=== PATIENT | male | born 1975 | race Hispanic/Latino ===

== ENCOUNTER 2018-01-30 09:26 | Day surgery (SDC) | payer OTHER ==
[2018-01-28 12:45] VITALS: BMI 35.5
[2018-01-30] MEDS ORDERED: Ketorolac Tromethamine 30 MG/ML VIAL ONE (10:14)
[2018-01-30] MEDS ORDERED: CEFAZOLIN/Water 2 GM/20 ML SYRINGE ONE (10:14)
[2018-01-30] MEDS ORDERED: Fentanyl 100 MCG/2 ML VIAL ONE ×2 (12:54→14:01)
[2018-01-30] MEDS ORDERED: Lidocaine 2% 10 ML INJ ONE (12:57)
[2018-01-30] MEDS ORDERED: Bupivacaine HCl 0.5%/Epinephrine 1:200,000/PF 30 ml Vial ONE (12:57)
[2018-01-30] MEDS ORDERED: Lidocaine 1% PF 5 ML VIAL ONE (13:46)
[2018-01-30] MEDS ORDERED: Dexamethasone 20 MG/5 ML VIAL ONE (13:46)
[2018-01-30] MEDS ORDERED: Ondansetron HCl/PF 4 MG/2 ML Vial ONE (13:46)
[2018-01-30] MEDS ORDERED: PROPOFOL 200 MG/20 ML VIAL ONE (13:46)
--- NOTE | 2018-01-30 14:13 | OP ---
PREOPERATIVE DIAGNOSIS: Symptomatic painful umbilical hernia. POSTOPERATIVE DIAGNOSIS: Symptomatic painful umbilical hernia. PROCEDURE: PVP 4.4 cm mesh, preperitoneal reinforcement of fascial closure repair of umbilical herni a. SURGEON: Dr. Raghavendra Rain. ANESTHESIA: General. Local 0.5% Marcaine with epinephrine 30 mL, mixed with 2% Xylocaine 10 mL, tot al volume mixture used. PROCEDURE IN DETAIL: The patient was taken to the operating room where under general anesthesia, abd omen was clipped of hair, prepared with ChloraPrep, draped in routine fashion. Local anesthetic infi ltrated into skin subcutaneous tissue about the operative site. Infraumbilical incision made and an umbilical hernia defect dissected free. Fascial edges identified. Preperitoneal space was identifie d. PVP mesh placed in the preperitoneal space and controlling with the straps and interrupted suture s of 0 PDS used to complete the hernia repair [id number] incorporating mesh approximation of the fascial closure, closing the defect. Subcutaneous tissues approximated with 3-0 Monocryl, skin with subdermal 4-0 Monocryl. Umbilicus approximated to the fascia with 3-0 Monocryl and DermaGlue applie d. The patient tolerated the procedure well.
[2018-01-30] MEDS ORDERED: traMADol HCl 50 MG TAB ONE (15:43)
== END 2018-01-30 16:40 | disposition home or self-care (01) ==
LOC: SDC 09:26 → EEVIPCON 16:15 → SDC 16:40
PROVIDERS: ATTEND Specialist
PROC: 0WUF0JZ Supplement Abdominal Wall with Synthetic Substitute, Open Approach (ICD-10-PCS; principal; 2018-01-30)
DX: K42.9 Umbilical hernia without obstruction or gangrene (principal)
CPT/HCPCS: 96374; J0131; J0670; J1100; J1885; J2001; J2405; J2704; J3010